=== PATIENT | female | born 1980 | race Hispanic/Latino ===

== ENCOUNTER 2017-01-16 17:22 | Emergency (ER) | payer MEDICAID ==
--- NOTE | 2017-01-16 18:46 | Emergency Department Report ---
Chief Complaint: Overdose Stated Complaint: DEPRESSED/SUICIDAL/ Time Seen by Provider: 01/16/17 18:42 - HPI History of Present Illness: Patient is a 36-year-old female with a history of depression on Effexor who presents to ED complaining of needed to be absent of stabilize teaches suicidal thoughts last night. Patient states she took about 5-10 tablets of her Effexor 75 mg. Patient states she just doesn't feel well. She denies fevers/chills/nausea/vomiting/abdominal pain/diarrhea/constipation/ headache/chest pain or shortness of breath. She denies HI or SI at the moment - ROS Review of Systems: As noted in HPI - Exam Vital Signs: Vital Signs 01/16/17 18:26 Temperature 99.1 F Pulse Rate 136 H Respiratory 18 Rate Blood Pressure 134/89 O2 Sat by Pulse 98 Oximetry Physical Exam: GENERAL: Alert and oriented x3, no apparent distress, Normal Gait, atraumatic. NECK: Supple. Non edematous, No carotid bruits. No lymphadenopathy or thyromegaly. LUNGS: Symetrical with respiration, No wheezing, no rales or crackles, CTAB. HEART: S1, S2 present, regular rate and rhythm without murmur, no rubs, no gallops. PSYCHIATRIC: Mood is congruent with affect, denies suicidal or homicidal ideations. SKIN: Warm and dry, No lesions, No ulceration or induration present. MSE screening note: Focused history and physical exam performed. Due to findings the following was ordered: ED Medical Decision Making - Medical Decision Making labs ordered pt to be seen by ED physician. ED Disposition for MSE Condition: Stable
[2017-01-16 19:56] LABS: Basophils % (Auto) 0.6 % (0.0-1.8); Eosinophils % (Auto) 0.9 % (0.0-4.3); Hematocrit 46.3 % (30.3-42.9); Hemoglobin 15.5 gm/dl (10.1-14.3); Mean Corpuscular HGB Conc 34 % (30-34); Mean Corpuscular Hemoglobin 29 pg (28-32); Mean Corpuscular Volume 87 fl (79-97); Platelet Count 346 K/mm3 (140-440); Red Blood Count 5.31 M/mm3 (3.65-5.03); Red Cell Distribution Width 13.7 % (13.2-15.2); White Blood Count 8.1 K/mm3 (4.5-11.0)
[2017-01-16 20:03] LABS: Anion Gap 20 mmol/L; Blood Urea Nitrogen 12 mg/dL (7-17); Calcium 8.6 mg/dL (8.4-10.2); Carbon Dioxide 24 mmol/L (22-30); Chloride 102.8 mmol/L (98-107); Glucose 105 mg/dL (65-100); Potassium 4.2 mmol/L (3.6-5.0); Sodium 143 mmol/L (137-145)
[2017-01-16] MEDS ORDERED: NACL 0.9% 1000 ML 2,000 ML IV ONE (22:27)
--- NOTE | 2017-01-17 00:46 | Emergency Department Report ---
HPI - General Chief Complaint: Overdose Time Seen by Provider: 01/16/17 20:45 - HPI HPI: The patient is a 36-year-old female who presents for evaluation of mental health. The patient reports 2 days of constant severe sadness, exacerbated with arguing with her . She reports intentionally consuming 15 tablets of Effexor earlier today. The patient denies fever, headache, unexplained weight loss or weight gain, heat or cold intolerance, skin, hair, or nail changes, neuro deficits, homicidal ideations, or auditory or visual hallucinations. ED Past Medical Hx - Past Medical History Hx Sickle Cell Disease: No Hx Psychiatric Treatment: Yes (bi-polar / DEPRESSION) - Surgical History Additional Surgical History: BILATERAL WRIST, X 2. PARTIAL HYSTERECTOMY - Social History Smoking Status: Never Smoker Substance Use Type: Alcohol - Medications Home Medications: Home Medications Medication Instructions Recorded Confirmed Last Taken Type Venlafaxine [Effexor] 75 mg PO QDAY 01/16/17 01/16/17 01/15/17 09:00 History ED Review of Systems ROS: Stated complaint: DEPRESSED/SUICIDAL/ Other details as noted in HPI Constitutional: denies: fever ENT: denies: throat or neck pain Respiratory: denies: cough, shortness of breath Cardiovascular: denies: chest pain Endocrine: denies unexplained weight loss or gain Gastrointestinal: denies: abdominal pain, nausea Genitourinary: denies: dysuria Musculoskeletal: denies: leg swelling Skin: denies: rash Neurological: denies: headache Hematological/Lymphatic: denies: easy bleeding or easy bruising Psych: reports sadness, SI Physical Exam - Physical Exam Vital Signs: Vital Signs 01/16/17 18:26 Temperature 99.1 F Pulse Rate 136 H Respiratory 18 Rate Blood Pressure 134/89 O2 Sat by Pulse 98 Oximetry Physical Exam: General: well-nourished, well-developed, no acute distress Head: Normocephalic, atraumatic Eyes: normal sclera ENT: Mucous membranes are pale and dry Neck: No neck stiffness, no cervical adenopathy Respiratory: Breath sounds equal bilaterally, no wheezing, rales, or rhonchi Cardio: S1 and S2 present, no murmurs, rubs, gallops, capillary refill is delayed Abdomen: Normoactive bowel sounds, soft abdomen, no rigidity, no guarding or rebound tenderness Musc: No pitting edema Skin: No rash Neuro: no facial drooping, normal speech Psych: Flat affect, poor insight, patient depressed mood, positive SI ED Course Vital Signs 01/16/17 18:26 Temperature 99.1 F Pulse Rate 136 H Respiratory 18 Rate Blood Pressure 134/89 O2 Sat by Pulse 98 Oximetry ED Medical Decision Making - Lab Data Result diagrams: 01/16/17 19:31 01/16/17 19:31 - Medical Decision Making The patient was seen and examined by myself. The patient is placed on a clinical research monitor and continuous pulse ox. On initial evaluation, the patient was found to be in no distress. IV access is established and the patient given 1 L normal saline fluid bolus for treatment of dehydration. Labs are obtained. Lab results reveal elevated EtOH level, and elevated hemoglobin and hematocrit, consistent with hemoconcentration exam findings of dehydration, and otherwise labs are grossly unremarkable including normal Tylenol and salicylate levels. The patient is medically clear. Mental health is consulted. Mental health evaluates the patient and agrees that the patient is at risk of harm to self. A 1013 is completed. The patient will be admitted to a psychiatric facility once bed placement is obtained. Critical care attestation.: If time is entered above; I have spent that time in minutes in the direct care of this critically ill patient, excluding procedure time. ED Disposition Clinical Impression: Suicidal ideation, Severe dehydration Alcohol intoxication Qualifiers: Complication of substance-induced condition: uncomplicated Qualified Code(s): F10.120 - Alcohol abuse with intoxication, uncomplicated Disposition: DC/TX PSY HOSP/PSY UNIT Is pt being admited?: No Does the pt Need Aspirin: No Condition: Stable Referrals: PRIMARY CARE [Primary Care Provider] - 3-5 Days Time of Disposition: 21:30
[2017-01-17 01:25] LABS: Urine Drugs of Abuse Note Disclamer
[2017-01-17 01:33] LABS: Bilirubin,Urine NEG (Negative); Blood,Urine MOD (Negative); Ketones,Urine NEG (Negative); Leukocyte Esterase,Urine NEG (Negative); Mucus,Urine FEW /HPF; Nitrite,Urine NEG (Negative); Protein,Urine <15 mg/dL mg/dL (Negative); Urobilinogen,Urine < 2.0 mg/dL (<2.0)
[2017-01-17] MEDS ORDERED: MILK OF MAGNESIA PO PRN (04:35)
[2017-01-17] MEDS ORDERED: ALUM-MAG HYDROX-SIMETH 200-200-20MG/5ML PO PRN (04:35)
[2017-01-17] MEDS ORDERED: TYLENOL PO PRN (04:35)
[2017-01-17 07:23] VITALS: BP 148/99
== END 2017-01-17 08:30 ==
LOC: ED 17:22 → EEVIPCON 17:22 → ED 01-17 08:30
DX: E86.0 Dehydration (principal); F10.120 Alcohol abuse with intoxication, uncomplicated; R45.851 Suicidal ideations; F31.9 Bipolar disorder, unspecified; Z98.890 Other specified postprocedural states; Z90.711 Acquired absence of uterus with remaining cervical stump
CPT/HCPCS: 36415; 80048; 80307; 81001; 84703; 85025; 96360; 99285; G0480; J7030; 80320

== ENCOUNTER 2017-04-01 00:30 | Emergency (ER) | payer MEDICAID ==
[2017-04-01 01:49] VITALS: BP 123/84
[2017-04-01 02:53] LABS: Anion Gap 18 mmol/L; BUN/Creatinine Ratio 15.71; Blood Urea Nitrogen 11 mg/dL (7-17); Carbon Dioxide 21 mmol/L (22-30); Chloride 108.3 mmol/L (98-107); Glucose 101 mg/dL (65-100); Potassium 3.7 mmol/L (3.6-5.0); Sodium 144 mmol/L (137-145)
[2017-04-01 03:09] LABS: Urine Drugs of Abuse Note Disclamer
[2017-04-01 03:10] LABS: Basophils % (Auto) 0.7 % (0.0-1.8); Eosinophils % (Auto) 0.3 % (0.0-4.3); Hematocrit 41.2 % (30.3-42.9); Hemoglobin 14.1 gm/dl (10.1-14.3); Mean Corpuscular HGB Conc 34 % (30-34); Mean Corpuscular Hemoglobin 30 pg (28-32); Mean Corpuscular Volume 87 fl (79-97); Platelet Count 288 K/mm3 (140-440); Red Blood Count 4.76 M/mm3 (3.65-5.03); Red Cell Distribution Width 13.6 % (13.2-15.2)
[2017-04-01 03:26] LABS: Bacteria,Urine 1+ /HPF (Negative); Bilirubin,Urine NEG (Negative); Blood,Urine MOD (Negative); Ketones,Urine NEG (Negative); Leukocyte Esterase,Urine TR (Negative); Mucus,Urine FEW /HPF; Nitrite,Urine NEG (Negative); Protein,Urine <15 mg/dL mg/dL (Negative); Renal Epithelial Cells,Urine <1 /LPF; Urobilinogen,Urine < 2.0 mg/dL (<2.0)
--- NOTE | 2017-04-01 03:48 | Emergency Department Report ---
ED Psych HPI - General Chief Complaint: Psych Stated Complaint: MH EVALUATION Time Seen by Provider: 04/01/17 03:46 Source: patient Mode of arrival: Ambulatory - History of Present Illness Initial Comments: 36-year-old female with history of depression presenting today because of alcohol intoxication. Patient states that she had been drinking alcohol and had some problems at home which she is not willing to reveal to me. Per EMS documentation and she was talking about hurting herself. Patient states that she feels much better now and is less intoxicated and does not have any thoughts of hurting herself. She's not had any prior suicide attempts. States that she would like to go home and her is here to pick her up. She feels safe at home. No homicidal ideation or suicidal ideation. No visual or auditory hallucinations. She has been taking her medication consistently. - Related Data Home Medications Medication Instructions Recorded Confirmed Last Taken Venlafaxine [Effexor] 75 mg PO QDAY 01/16/17 04/01/17 1 Day Ago traZODone [Desyrel] 100 mg PO QHS 04/01/17 04/01/17 1 Day Ago Allergies Allergy/AdvReac Type Severity Reaction Status Date / Time No Known Allergies Allergy Verified 01/16/17 18:23 ED Review of Systems ROS: Stated complaint: MH EVALUATION Other details as noted in HPI Comment: All other systems reviewed and negative Constitutional: denies: chills, fever Eyes: denies: vision change Respiratory: denies: cough, shortness of breath Cardiovascular: denies: chest pain Gastrointestinal: denies: nausea, vomiting Genitourinary: denies: dysuria Skin: denies: rash Neurological: denies: headache Psychiatric: denies: depression, auditory hallucinations, visual hallucinations , homicidal thoughts, suicidal thoughts ED Past Medical Hx - Past Medical History Previous Medical History?: Yes Hx Hypertension: No Hx CVA: No Hx Heart Attack/AMI: No Hx Congestive Heart Failure: No Hx Diabetes: No Hx Deep Vein Thrombosis: No Hx Pulmonary Embolism: No Hx GERD: No Hx Liver Disease: No Hx Renal Disease: No Hx of Cancer: No Hx Sickle Cell Disease: No Hx Arthritis: No Hx Headaches / Migraines: No Hx Seizures: No Hx Kidney Stones: No Hx Psychiatric Treatment: Yes (bi-polar / DEPRESSION) Hx Asthma: No Hx COPD: No Hx Tuberculosis: No Hx Dementia: No Hx HIV: No - Surgical History Additional Surgical History: BILATERAL WRIST, X 2. PARTIAL HYSTERECTOMY - Social History Smoking Status: Current Some Day Smoker Substance Use Type: Alcohol - Medications Home Medications: Home Medications Medication Instructions Recorded Confirmed Last Taken Type Venlafaxine [Effexor] 75 mg PO QDAY 01/16/17 04/01/17 1 Day Ago History traZODone [Desyrel] 100 mg PO QHS 04/01/17 04/01/17 1 Day Ago History ED Physical Exam - General Limitations: No Limitations ED Course Vital Signs 04/01/17 04/01/17 01:45 01:53 Temperature 98 F 98 F Pulse Rate 106 H 106 H Respiratory 18 18 Rate Blood Pressure 123/84 Blood Pressure 123/84 [Right] O2 Sat by Pulse 96 96 Oximetry ED Medical Decision Making - Lab Data Result diagrams: 04/01/17 02:22 04/01/17 02:22 - Medical Decision Making Patient appears to be coherent and makes sounds. Does not appear to be suicidal and denies any suicidal ideation or homicidal ideation at this time. Patient is clinically stable for discharge. Critical care attestation.: If time is entered above; I have spent that time in minutes in the direct care of this critically ill patient, excluding procedure time. ED Disposition Clinical Impression: Alcohol intoxication Qualifiers: Complication of substance-induced condition: uncomplicated Qualified Code(s): F10.920 - Alcohol use, unspecified with intoxication, uncomplicated Disposition: DISCHARGED TO HOME OR SELFCARE Is pt being admited?: No Does the pt Need Aspirin: No Condition: Stable Instructions: Alcohol Intoxication (ED), Suicide Prevention for Adults (ED) Additional Instructions: Please follow up with the primary care physician and psychiatrist in the next 3- 5 days. Return the ER if your symptoms worsen or you develop new symptoms. Referrals: [facility] [Outside] - 3-5 Days [facility] [Outside] - 3-5 Days [facility] [Outside] - 3-5 Days Forms: AMA Form Time of Disposition: 03:47
== END 2017-04-01 03:58 | disposition home or self-care (01) ==
LOC: ED 00:30 → EEVIPCON 00:30 → ED 03:58
DX: F10.920 Alcohol use, unspecified with intoxication, uncomplicated (principal); F31.9 Bipolar disorder, unspecified; F17.200 Nicotine dependence, unspecified, uncomplicated; Z90.711 Acquired absence of uterus with remaining cervical stump
CPT/HCPCS: 36415; 80048; 80307; 81001; 85025; 99283; G0480; 80320

== ENCOUNTER 2019-04-22 12:41 | Outpatient (CLI) | payer MEDICAID ==
--- NOTE | 2019-04-22 16:20 | Cat Scan Report ---
PROCEDURE: CT ABDOMEN PELVIS WO CON TECHNIQUE: CT examination of the abdomen without IV contrast CT examination of the pelvis without IV contrast Oral contrast given HISTORY: INCISIONAL HERNIA WITHOUT OBSTRUCTION OR GANGRENE COMPARISONS: None FINDINGS: Chronic appearing slight upper endplate compression of L1. Degenerative change in the regional skelet on. No evidence of acute fracture. Partial visualization of left femur carotid. Healed left pubic delmy i and left acetabular fractures. Transverse screw in place across both SI joints. Metal artifact limi ts evaluation. Prior median sternotomy. Multiple healed left rib fractures. Pleural-parenchymal scarr ing in the lingula deep to the fractures. No acute lung base finding. Normal noncontrast appearance of the liver, adrenals, pancreas, and spleen. Normal caliber abdominal aorta and IVC. Trace density in the dependent gallbladder lumen may be sludge and/or tiny calculi. No other biliary pathology. Normal-appearing kidneys and ureters. Ventral hernia is present in the upper abdominal midline just inferior to the xiphoid. Midportion of hernia is approximately 15.9 cm superior to the umbilicus. Maximum hernia sagittal dimension is 9.9 c m. Approximate transverse dimension is 7.7 cm. Hernia contains mesenteric fat, the gastric antrum, an d a small portion of the left hepatic lobe. No evidence of incarceration or intestinal obstruction. Umbilical jewelry in place. No evidence of umbilical or inguinal hernia. No retroperitoneal adenopath y. No evidence of mesenteric mass. Otherwise normal-appearing stomach and duodenum. No small bowel di stention in the abdomen and pelvis. No pelvic free fluid. Normal-appearing urinary bladder and rectum. Uterus is not visible which may be surgically absent. No adnexal abnormality. Normal-appearing sigmoid colon. No gross ascites, free ai r, or colonic distention. Normal-appearing cecum, terminal ileum, and appendix. Scattered prominence of stool in the distal transverse colon, descending colon, and proximal sigmoid colon may reflect left-sided constipation. IMPRESSION: Upper abdominal midline ventral hernia containing mesenteric fat, gastric antrum, and portion of left hepatic lobe. No evidence of intestinal obstruction or incarceration Trace density in the dependent gallbladder lumen may be sludge and/or tiny calculi Scattered prominence of stool may reflect left-sided constipation This document is electronically signed by Elijah Flowers MD., April 22 2019 04:18:05 PM ET
== END 2019-04-22 12:42 | disposition home or self-care (01) ==
LOC: CT 12:41
PROVIDERS: ATTEND Surgery
DX: K43.9 Ventral hernia without obstruction or gangrene (principal); Z90.710 Acquired absence of both cervix and uterus
CPT/HCPCS: 74176